=== PATIENT | male | born 1995 | race Caucasian/White ===

== ENCOUNTER 2023-12-01 10:16 | Emergency (ER) | payer OTHER, SELFPAY ==
[2023-12-01 10:17] VITALS: BP 122/75
[2023-12-01 10:18] VITALS: BP 122/75
--- NOTE | 2023-12-01 10:25 | ED.GENMED ---
History of Present Illness
General
Chief Complaint: Skin Problem
Source: patient and other (corrections officers)
Time Seen by Provider: 12/01/23 10:18
History of Present Illness
History of Present Illness:
28-year-old male presenting to the emergency department with corrections officers for evaluation after he presented new to the shelter and has a clear right thumb infection. Patient states that this started about 3 months ago when he was using a
broken piece of umbrella to clean under his nails and believes a piece may have broken off and has had a chronic infection since. Patient went to a separate hospital initially and was admitted but left AGAINST MEDICAL ADVICE. He was told that he
needed to see a hand specialist but never did. There are no new symptoms today but correctional officer captain state that since he is new to the shelter, the [facility] felt he needed to be evaluated here.
Past History
Past History
ED Past Medical History: None
ED Past Surgical History: None
Social History
Tobacco: Smoker
Alcohol: None
Drug: Narcotics
Personal: Single
Living: halfway
Review of Systems
Review of Systems
All Other Systems: ROS reviewed and negative except as documented in HPI and ROS
Phy Exam
Physical Exam
Physical Exam:
GENERAL: Alert , in no apparent distress
EYE: conjunctiva clear
Head: Normocephalic atraumatic
NECK: Supple,
ENT: mmm.
LUNGS: no acute respiratory distress
NEUROLOGICAL: Alert and oriented
SKIN: Warm and dry, Right Hand: right thumb has significant edema/erythema and ttp over distal phalynx with tip of distal phalynx exposed. no purulence. Patient unable to flex at IP join. ROM at MCP without pain. No streaking
MUSCULOSKELETAL: well perfused.
PSYCH: Normal and appropriate interaction.
Scores
Heart Failure Risk
Heart Failure Risk Score: Not Applicable
Heart Score for Chest Pain Patients
STEMI patient?: Not applicable
Withdrawal Assessment of Alcohol
Withdrawal Assessment Completed?: Not applicable
Course
Orders/Labs/Results
Orders:
Orders
12/01/23 10:24
CR Hand - Right Min 3 Views Urgent
Comment:
Reason For Exam: right thumb infection/osteo
12/01/23 10:31
Basic Metabolic Panel Urgent
CRP [C-Reactive Protein] Urgent
Complete Blood Count/With Diff Urgent
ESR [Erythrocyte Sed Rate] Urgent
Abnormal Lab Results
12/01/23
10:31
WBC 14.0 H 10^3/uL
(4.8-10.8)
RBC 4.67 L 10^6/uL
(4.70-6.10)
Abs Immat Gran (auto) 0.1 H 10^3/uL
(0-0.05)
Absolute Neuts (auto) 11.1 H 10^3/uL
(1.4-6.5)
Absolute Monos (auto) 1.2 H 10^3/uL
(0.1-0.6)
Neutrophils % 79.6 H %
(42.2-75.2)
Lymphocytes % 10.7 L %
(20.5-51.1)
Sodium 134 L mmol/L
(135-145)
Glucose 130 H mg/dl
(70-99)
12/01/23 10:31
12/01/23 10:31
Vital Signs
Initial and Last Documented VS:
Initial Vital Signs
BP
122/75
12/01/23 10:17
Last Documented Vital Signs
Temp Pulse Resp BP Pulse Ox
97.8 F 93 20 121/80 100
12/01/23 10:18 12/01/23 10:18 12/01/23 10:18 12/01/23 12:05 12/01/23 12:06
MDM/Problems Addressed
Differential Diagnosis Includes:
Osteomyelitis, foreign body, cellulitis, abscess, tenosynovitis
MDM/Problems Addressed:
28-year-old male presented the ER from corrections for evaluation of right thumb infection. This been an ongoing issue for around 3 months. Patient recommended to see hand specialist but never did. Patient appears to have a chronic
cellulitis/osteomyelitis. No change in symptoms today. Corrections/medical concerned given patient is new to their facility so sent patient to the ER for further evaluation. Will obtain labs and x-ray. Disposition pending
*Radiology
Radiology exam reviewed: preliminary read by ED provider (Osteomyelitis of the distal phalanx right thumb)
*Pulse Oximetry
Patient hypoxic: no
*Critical Care Note
Total Time (30-74mins, 75-104mins- exclusive of procedures): Not Applicable
Patient Management
Discussion with other providers: Chief Risk Officer and Long Term staff
Escalation/DeEscalation of care consider admission/obs:
Patient's workup is most consistent with osteomyelitis of the right thumb. X-ray does show bony destruction/erosion at the IP joint and distal phalanx. I discussed the case with on-call orthopedic surgeon, Dr. Bauer, who states as long as
patient is not septic he feels it would be reasonable for outpatient management given the chronicity of the symptoms but would recommend an antibiotic for patient to be discharged home with. I did speak to the nursing staff at the [facility] who confirmed that they would be able to get patient an outpatient visit with orthopedics. We discussed the findings of his workup and that patient is medically cleared for incarceration. Prescription for clindamycin given
for 10 days. Aware of return precautions to the ER. Stable for discharge back to halfway.
ED Attending Note
-
Portions of this chart may have been created with voice recognition software.� Occasional wrong word or��sound alike� substitutions may have occurred due to the inherent limitations of voice recognition software.
Discharge Plan
Departure
Patient Disposition: Long Term
Date of Disposition: 12/01/23
Time of Disposition: 12:20
Patient with high blood pressure during this ER visit?: No
Discharge Problem:
Osteomyelitis of right hand
Instructions: Osteomyelitis in adults
Prescriptions:
New
clindamycin HCl 300 mg capsule
300 mg PO TID 10 Days Qty: 30 0RF
Referrals:
[facility] [Family Provider] -
Jose Block MD [Active] - ([facility])
Aurelio Mendez MD [Active] - ([facility])
Activity Restrictions/Additional Instructions:
Patient is medically cleared for incarceration
Interventions
Interventions:
*Risk Screen - Suicide Last Done: 12/01/23 10:18
*General Assessment Last Done: 12/01/23 10:18
*Neglect/Abuse Screening Last Done: 12/01/23 10:18
ED- Fall Risk Assessment Last Done: 12/01/23 12:37
*ED COVID-19 Vaccine History Last Done: 12/01/23 12:37
*Nursing Disposition Last Done: 12/01/23 12:37
ED-Skin Assessment Last Done: 12/01/23 11:02
Discharge Date and Time
Discharge Date/Time: 12/01/23 12:38
Print Language: KOSOVAN
[2023-12-01 10:47] LABS: % Basophils 0.4 % (0-2); % Eosinophils 0.1 % (0-6); % Immature Granulocytes 0.4 % (0-0.5); % Lymphocytes 10.7 % (20.5-51.1); % Monocytes 8.8 % (1.7-9.3); % Neutrophils 79.6 % (42.2-75.2); Absolute Basophils 0.1 10^3/uL (0-0.2); Absolute Immature Granulocytes 0.1 10^3/uL (0-0.05); Absolute Lymphocytes 1.5 10^3/uL (1.2-3.4); Absolute Monocytes 1.2 10^3/uL (0.1-0.6); Absolute Neutrophils 11.1 10^3/uL (1.4-6.5); Hematocrit 40.2 % (39.0-52.0); Mean Corp Hgb Conc. 34.8 g/dL (33.0-37.0); Mean Corpuscular Volume 86.1 fL (80.0-94.0); Mean Platelet Volume 8.7 fL (7.4-10.4); Nucleated Red Blood Cells % 0 % (-); Platelet Count 343 10^3/uL (130-400); Red Blood Cell Count 4.67 10^6/uL (4.70-6.10); Red Cell Dist. Width 13.3 % (11.5-14.5)
[2023-12-01 11:00] VITALS: BP 120/79
[2023-12-01 11:04] LABS: Blood Urea Nitrogen 15 mg/dl (9-20); Calcium 9.4 mg/dl (8.4-10.2); Chloride 102 mmol/L (98-107); Estimated Creatinine Clearance > 125 ml/min; Glucose 130 mg/dl (70-99); Sodium 134 mmol/L (135-145); eGFR > 60.00
[2023-12-01 11:10] LABS: C-Reactive Protein < 5.00 mg/L (0.0-10.00)
[2023-12-01 11:31] LABS: Carbon Dioxide 24 mmol/L (22-30)
[2023-12-01 12:05] VITALS: BP 121/80
[2023-12-01 13:02] LABS: Erythrocyte Sed Rate 16 mm/hour (0-20)
== END 2023-12-01 12:38 ==
LOC: EMR 10:16
PROVIDERS: Physician Assistant Medical; EMERGENCY PHYSICIAN Student in an Organized Health Care Education/Training Program
DX: M86.9 Osteomyelitis, unspecified (principal); R60.0 Localized edema; L03.011 Cellulitis of right finger; F17.200 Nicotine dependence, unspecified, uncomplicated
CPT/HCPCS: 99283; 73130; 80048; 85025; 85652; 86140